=== PATIENT | male | born 1965 | race Caucasian/White ===

== ENCOUNTER 2021-03-02 06:18 | Day surgery (SDC) | payer BC ==
[2021-03-02] MEDS ORDERED: Sodium Chloride 0.9% 1,000 ML IV SCH (07:00)
[2021-03-02] MEDS ORDERED: fentaNYL 100 MCG/2 ML SDV ONE (07:21)
[2021-03-02] MEDS ORDERED: Midazolam 1 MG/ML 2 ML SDV ONE (07:21)
[2021-03-02] MEDS ORDERED: Propofol 200 MG/20 ML SDV ONE (07:21)
--- NOTE | 2021-03-02 11:28 | OR ---
DATE OF PROCEDURE: 03/02/2021 SURGEON: Diaz Martines MD PROCEDURE: Colonoscopy. FINDINGS: Ascending colon polyp, approximately 5 mm, completely removed using cold biopsy forceps. COMPLICATION: None. DEVELOPMENT TRAINER: None. PREOPERATIVE DIAGNOSIS: History of colorectal cancer. POSTOPERATIVE DIAGNOSIS: History of colorectal cancer. RISKS: Risks, benefits, alternatives, and limitations including, but not limited to infection, bleeding, perforation, false positives and false negatives were explained to the patient who wished to proceed. PROCEDURE IN DETAIL: The patient was placed in left lateral decubitus position. Digital rectal exam was performed without abnormality. The scope was introduced and advanced atraumatically to the ileocolic anastomosis. No evidence of old or new blood. No masses. The aforementioned polyp was identified and completely removed. No abnormalities on retroflexion. No colitis. No old or new blood. Greater than 8 minutes was spent removing the scope. Prep was acceptable, approximately 90% of luminal surface could be seen. The patient tolerated the procedure well. Diaz Martines MD /[id number]
== END 2021-03-02 09:30 | disposition home or self-care (01) ==
LOC: JP.SDS 06:18
PROVIDERS: ATTEND Surgery
DX: Z12.11 Encounter for screening for malignant neoplasm of colon (principal); D12.2 Benign neoplasm of ascending colon; I10 Essential (primary) hypertension; K42.9 Umbilical hernia without obstruction or gangrene; Z85.038 Personal history of other malignant neoplasm of large intestine; Z87.891 Personal history of nicotine dependence; Z98.0 Intestinal bypass and anastomosis status
CPT/HCPCS: 45380; J2250; J2704; J3010; J7030

== ENCOUNTER 2021-04-23 06:22 | Day surgery (SDC) | payer BC ==
[2021-04-23] MEDS ORDERED: Sodium Chloride 0.9% 1,000 ML IV SCH (06:45)
[2021-04-23] MEDS ORDERED: Bupivacaine 0.5%/EPINEPHrine 1:200,000 50 ML MDV ONE (06:48)
[2021-04-23] MEDS ORDERED: metroNIDAZOLE/Normal Saline 500 MG in Premix Bag 1 BAG IV ONE (07:15)
[2021-04-23] MEDS ORDERED: fentaNYL 100 MCG/2 ML SDV ONE (07:22)
[2021-04-23] MEDS ORDERED: Midazolam 1 MG/ML 2 ML SDV ONE (07:22)
[2021-04-23] MEDS ORDERED: Propofol 200 MG/20 ML SDV ONE ×2 (07:22→08:00)
[2021-04-23] MEDS ORDERED: ceFAZolin 2 GM in Premix Bag 1 BAG IV ONE (07:30)
[2021-04-23] MEDS ORDERED: Bupivacaine 0.5%/EPINEPHrine 1:200,000 30 ML SDV INJECT ONE ×2 (08:20)
== END 2021-04-23 09:49 | disposition home or self-care (01) ==
LOC: JP.SDS 06:22
PROVIDERS: ATTEND Surgery
DX: K42.0 Umbilical hernia with obstruction, without gangrene (principal); I10 Essential (primary) hypertension; Z87.891 Personal history of nicotine dependence
CPT/HCPCS: 36415; 49587; 80053; 85027; J0171; J0690; J1100; J2250; J2704; J2795; J3010; J3490; J7030

== ENCOUNTER 2025-01-15 06:12 | Day surgery (SDC) | payer BC ==
[2025-01-15] MEDS ORDERED: Midazolam 1 MG/ML 2 ML SDV ONE (06:59)
[2025-01-15] MEDS ORDERED: Propofol 200 MG/20 ML SDV ONE (06:59)
[2025-01-15] MEDS ORDERED: fentaNYL 50 MCG/ML SDV ONE (07:00)
[2025-01-15] MEDS: Lactated Ringers 1,000 ML IV SCH (07:02)
== END 2025-01-15 09:02 | disposition home or self-care (01) ==
LOC: JP.SDS 06:12
PROVIDERS: ATTEND Surgery
DX: C18.9 Malignant neoplasm of colon, unspecified (principal); I10 Essential (primary) hypertension; Z87.891 Personal history of nicotine dependence; Z79.899 Other long term (current) drug therapy
CPT/HCPCS: 45378; J2250; J2704; J3010; J7120; 00811-QZ